=== PATIENT | female | born 1950 | race Caucasian/White ===

== ENCOUNTER 2021-06-05 12:23 | Emergency (ER) | payer MEDICARE ==
[~2021-06-05 12:23] MED LIST: ASPIRIN EC81 MG PO; AUGMENTIN 875-1 EACH PO; BACTRIM DS TAB1 EACH PO; BENTYL10 MG PO; IMODIUM2 MG PO; NORCO 5-325 TA1 EACH PO; ONDANSETRON ODT4 MG PO/SL; PROTONIX 40MG T40 MG PO; ROBAXIN500 MG PO; TRAZODONE 50MG50 MG PO; ZOCOR40 MG PO; ZOFRAN4 MG PO; ZOLOFT100 MG PO; ZYRTEC10 M3 PO
[2021-06-05 13:15] LABS: BASOPHIL 0.6 % (0-2); EOSINOPHIL 1.3 % (0-7); HCT 38.4 % (37.0-47.0); HGB 13.1 g/dl (12.5-16.0); LYMPHOCYTE 15.9 % (15-48); MCH 33.2 pg (25.0-31.0); MCHC 34.1 g/dL (32.0-36.0); MCV 97.5 fL (78.0-100.0); MONOCYTE 8.5 % (0-12); MPV 8.7 fL (6.0-9.5); NEUTROPHIL 73.2 % (41-80); NRBC 0; PLT 395 K/uL (150-400); RBC 3.94 M/uL (4.20-5.40); WBC 8.3 K/uL (4.0-10.5)
[2021-06-05 13:26] LABS: ALBUMIN 3.7 g/dL (3.4-5.0); BILIRUBIN - TOTAL 0.5 mg/dL (0.2-1.0); BUN/CREAT RATIO (CALC) 21.5 RATIO; CREATININE 1.21 mg/dL (0.51-0.95); GLOBULIN (CALCULATION) 3.6 g/dL; POTASSIUM 3.5 mmol/L (3.5-5.1); TOTAL PROTEIN 7.3 g/dL (6.4-8.2)
[2021-06-05 13:31] LABS: LACTIC ACID 0.3 mmol/L (0.4-1.9)
[2021-06-05 16:12] LABS: BILIRUBIN NEGATIVE (NEGATIVE); BLOOD 2+ Ery/uL (NEGATIVE); CLARITY CLEAR (CLEAR); COLOR YELLOW (YELLOW); GLUCOSE (U) NORMAL (NORMAL); LEUKOCYTES NEGATIVE Leu/uL (NEGATIVE); NITRITE NEGATIVE (NEGATIVE); PROTEIN NEGATIVE (NEGATIVE); UROBILINOGEN 0.2 mg/dL (0.2-1.0)
[2021-06-05] MEDS ORDERED: LOMOTIL1 EACH PO (16:28)
[2021-06-05 16:36] LABS: BACTERIA TRACE; URINARY WBC RARE
== END 2021-06-05 16:40 | disposition home or self-care (01) ==
LOC: FER 12:23
PROVIDERS: Nurse Practitioner Family
DX: R19.7 Diarrhea, unspecified (principal); R53.1 Weakness
CPT/HCPCS: 36415; 80053; 81001; 82150; 83605; 83690; 85025; 87045; 87046; J7030

== ENCOUNTER 2021-09-23 14:29 | Emergency (ER) | payer MEDICARE ==
[~2021-09-23 14:29] MED LIST changes: +LOMOTIL1 EACH PO
== END 2021-09-23 17:16 | disposition home or self-care (01) ==
LOC: FER 14:29
DX: S61.313A Laceration without foreign body of left middle finger with damage to nail, initial encounter (principal); F17.210 Nicotine dependence, cigarettes, uncomplicated; Z23 Encounter for immunization; W23.1XXA Caught, crushed, jammed, or pinched between stationary objects, initial encounter; Y92.009 Unspecified place in unspecified non-institutional (private) residence as the place of occurrence of the external cause
CPT/HCPCS: 73140; 90471; 90715